=== PATIENT | female | born 1975 | race Caucasian/White ===

== ENCOUNTER → 2017-06-08 | Outpatient (CLI) | payer OTHER ==
[~2017-06-08] MED LIST: BCP PO; CITA20 PO; IBUP600 PO; Keflex500 MG PO; Lithium Carbon150 MG PO; Lotrimin Ultra12 GM EXT; NAPR550 PO; Norco 5-325 Ta1 EACH PO; PRAZ1 PO; TAYTULLA 1 MG-1 EACH PO; Ultram50 MG PO
[2017-06-08 17:00] LABS: Specimen Source CERVIX
[2017-06-09 13:51] LABS: Source Cervix
[2017-06-10 11:22] LABS: HPV Genotype 16 Not Detected (NOTDET); HPV Genotype 18 Not Detected (NOTDET)
[2017-06-15 09:08] LABS: HPV High Risk Other Not Detected (NOTDET)
== END ==
LOC: LAB 15:05
PROVIDERS: Registered Nurse Community Health
DX: Z12.4 Encounter for screening for malignant neoplasm of cervix (principal); Z11.3 Encounter for screening for infections with a predominantly sexual mode of transmission; N89.8 Other specified noninflammatory disorders of vagina
CPT/HCPCS: 87070; 87205; 87491; 87591; 87624; G0123

== ENCOUNTER 2017-11-01 10:17 | Emergency (ER) | payer OTHER ==
[~2017-11-01] VITALS: Ht 167.6 cm; Wt 101.2 kg
[~2017-11-01 10:17] MED LIST changes: -BCP PO; -CITA20 PO; -TAYTULLA 1 MG-1 EACH PO
[2017-11-01] MEDS ORDERED: CITA20 PO (10:46)
[2017-11-01] MEDS ORDERED: BCP PO (10:51)
[2017-11-01 11:16] LABS: BASOPHILS ABSOLUTE AUTO 0.04 K/mm3 (0.00-0.23); BASOPHILS PERCENT AUTO 1 % (0-2); EOSINOPHILS ABSOLUTE AUTO 0.19 K/mm3 (0.00-0.68); EOSINOPHILS PERCENT AUTO 3 % (0-6); Hemoglobin 11.6 g/dL (11.5-16.0); IMMATURE GRAN ABSOLUTE AUTO 0.02 K/mm3 (0.00-0.10); IMMATURE GRAN PERCENT AUTO 0 % (0-1); LYMPHOCYTES ABSOLUTE AUTO 2.65 K/mm3 (0.84-5.20); LYMPHOCYTES PERCENT AUTO 35 % (21-46); MONOCYTES ABSOLUTE AUTO 0.63 K/mm3 (0.16-1.47); MONOCYTES PERCENT AUTO 8 % (4-13); Mean Corpuscular HGB 27.7 pg (26.0-34.0); Mean Corpuscular HGB Conc 32.2 g/dL (31.5-36.5); Mean Corpuscular Volume 86 fL (80-100); Mean Platelet Volume 10.3 fL (9.1-12.4); NEUTROPHILS ABSOLUTE AUTO 4.12 K/mm3 (1.96-9.15); NEUTROPHILS PERCENT AUTO 54 % (41-73); Platelet Count 330 K/mm3 (150-400); RDW Coefficient Variation 14.2 % (11.7-14.2); RDW Standard Deviation 44.5 fL (35.1-46.3); Red Blood Cell Count 4.19 M/mm3 (3.80-5.20); White Blood Cell Count 7.65 K/mm3 (4.00-11.30)
[2017-11-01 11:20] LABS: Source, Urine Clean Catch
[2017-11-01 11:37] LABS: Alanine Aminotransfer (ALT/SGP 29 U/L (12-78); Albumin, Blood 3.5 g/dL (3.4-5.0); Albumin/Globulin Ratio 0.9 (0.8-1.8); Alk Phos 66 U/L (50-136); Anion Gap 8 mmol/L (6-16); Aspartate Aminotrans (AST/SGOT 19 U/L (12-37); Bilirubin, Total 0.3 mg/dL (0.1-1.0); Blood Urea Nitrogen 12 mg/dL (8-24); Bun/Creatinine Ratio 19.9 (12.0-20.0); CO2, Blood 23 mmol/L (21-32); Calcium, Blood 8.9 mg/dL (8.5-10.1); Chloride, Blood 108 mmol/L (98-108); Glomerular Filtration Rate >60 (60-); Glucose, Blood 75 mg/dL (70-99); Sodium, Blood 139 mmol/L (136-145); Total Protein, Blood 7.5 g/dL (6.4-8.2); Troponin I <0.015 ng/mL (0.000-0.040)
[2017-11-01 11:42] LABS: Bilirubin, Urine Neg (Neg); Blood, Urine 4+ (Neg); Glucose Qualitative, Urine Neg (Neg); Ketones, Urine Neg (Neg); Leukocyte Esterase, Urine 1+ (Neg); Nitrite, Urine Neg (Neg); Protein, Urine Neg (Neg); Specific Gravity, Urine 1.015 (1.003-1.022); Urobilinogen, Urine NORM (Normal)
[2017-11-01 12:12] LABS: Appearance, Urine Clear (Clear); Color, Urine Yellow (P-Yellow)
[2017-11-01 12:17] LABS: Bacteria Mod /hpf; Squamous Epithelial Cells Mod /hpf (Few)
== END 2017-11-01 14:47 | disposition home or self-care (01) ==
LOC: ER 10:17
PROVIDERS: Emergency Medicine
DX: R07.9 Chest pain, unspecified (principal); R10.11 Right upper quadrant pain; F17.210 Nicotine dependence, cigarettes, uncomplicated; Z79.899 Other long term (current) drug therapy
CPT/HCPCS: 36415; 71046; 80053; 81001; 81025; 83690; 84484; 85025; 87086; 93005; 93010; 96374; 96375; 99284; J2405; J3010

== ENCOUNTER → 2018-07-20 | Outpatient (CLI) | payer OTHER ==
[~2018-07-20] MED LIST changes: +BCP PO; +CITA20 PO; +TAYTULLA 1 MG-1 EACH PO
== END | disposition home or self-care (01) ==
LOC: LAB EV 12:19 → LAB SHORT 12:19
DX: J02.9 Acute pharyngitis, unspecified (principal)
CPT/HCPCS: 87070

== ENCOUNTER 2018-07-24 18:01 | Emergency (ER) | payer OTHER ==
[~2018-07-24] VITALS: Ht 167.6 cm; Wt 91.2 kg
[2018-07-24 19:47] LABS: Source, Urine Clean Catch
[2018-07-24 19:50] LABS: Bilirubin, Urine Neg (Neg); Blood, Urine 1+ (Neg); Glucose Qualitative, Urine Neg (Neg); Ketones, Urine 1+ (Neg); Leukocyte Esterase, Urine 1+ (Neg); Nitrite, Urine Neg (Neg); Protein, Urine 2+ (Neg); Specific Gravity, Urine 1.025 (1.003-1.022); Urobilinogen, Urine NORM (Normal)
[2018-07-24 19:51] LABS: BASOPHILS ABSOLUTE AUTO 0.06 K/mm3 (0.00-0.23); BASOPHILS PERCENT AUTO 1 % (0-2); EOSINOPHILS ABSOLUTE AUTO 0.15 K/mm3 (0.00-0.68); EOSINOPHILS PERCENT AUTO 1 % (0-6); Hematocrit 39.3 % (33.0-51.0); Hemoglobin 12.5 g/dL (11.5-16.0); IMMATURE GRAN ABSOLUTE AUTO 0.02 K/mm3 (0.00-0.10); IMMATURE GRAN PERCENT AUTO 0 % (0-1); LYMPHOCYTES ABSOLUTE AUTO 3.45 K/mm3 (0.84-5.20); LYMPHOCYTES PERCENT AUTO 33 % (21-46); MONOCYTES ABSOLUTE AUTO 0.75 K/mm3 (0.16-1.47); MONOCYTES PERCENT AUTO 7 % (4-13); Mean Corpuscular HGB 27.7 pg (26.0-34.0); Mean Corpuscular HGB Conc 31.8 g/dL (31.5-36.5); Mean Corpuscular Volume 87 fL (80-100); Mean Platelet Volume 10.2 fL (9.1-12.4); NEUTROPHILS ABSOLUTE AUTO 5.95 K/mm3 (1.96-9.15); NEUTROPHILS PERCENT AUTO 57 % (41-73); Platelet Count 337 K/mm3 (150-400); RDW Standard Deviation 47.8 fL (35.1-46.3); Red Blood Cell Count 4.52 M/mm3 (3.80-5.20); White Blood Cell Count 10.38 K/mm3 (4.00-11.30)
[2018-07-24 19:56] LABS: Appearance, Urine Clear (Clear); Color, Urine Yellow (P-Yellow)
[2018-07-24 19:57] LABS: Bacteria Many /hpf; Mucus Mod (0-Heavy); Red Blood Cells, Urine 0-2 /hpf (0-2); Squamous Epithelial Cells Few /hpf (Few)
[2018-07-24 20:12] LABS: U Amphetamine Screen Not Detected; U Barbituate Screen Not Detected; U Benzodiazapine Screen Not Detected; U Buprenorphine Screen Not Detected; U Cannabinoids Screen DETECTED; U Cocaine Screen Not Detected; U Methadone Screen Not Detected; U Methamphetamine Screen Not Detected; U Opiates Screen Not Detected; U Oxycodone Screen Not Detected; U Phencyclidine Screen Not Detected; U Propoxyphene Screen Not Detected
[2018-07-24 20:27] LABS: Alanine Aminotransfer (ALT/SGP 30 U/L (12-78); Alk Phos 66 U/L (50-136); Anion Gap 8 mmol/L (6-16); Aspartate Aminotrans (AST/SGOT 14 U/L (12-37); Bilirubin, Total 0.3 mg/dL (0.1-1.0); Blood Urea Nitrogen 11 mg/dL (8-24); Bun/Creatinine Ratio 15.6 (12.0-20.0); CO2, Blood 22 mmol/L (21-32); Chloride, Blood 108 mmol/L (98-108); Creatinine, Blood 0.71 mg/dL (0.40-1.00); Glomerular Filtration Rate >60 (60-); Glucose, Blood 104 mg/dL (70-99); Potassium, Blood 3.6 mmol/L (3.5-5.5); Salicylate 2.7 mg/dL (2.8-20.0); Sodium, Blood 138 mmol/L (136-145)
[2018-07-24 20:33] LABS: Acetaminophen, Random <2.0 ug/mL (10.0-30.0); Ethanol (Alcohol), Blood, Med <3 mg/dL
== END 2018-07-24 20:33 | disposition home or self-care (01) ==
LOC: ER 18:01
PROVIDERS: Physician Assistant
DX: F31.9 Bipolar disorder, unspecified (principal); J45.909 Unspecified asthma, uncomplicated; G43.909 Migraine, unspecified, not intractable, without status migrainosus; Z79.899 Other long term (current) drug therapy
CPT/HCPCS: 80053; 81001; 85025; 87086; 96372; 99284-25; G0480; J1200; J1630; Q3014

== ENCOUNTER 2019-01-01 17:13 | Emergency (ER) | payer OTHER ==
[~2019-01-01] VITALS: Ht 167.6 cm; Wt 89.4 kg
[2019-01-01 18:33] LABS: Source, Urine Voided
[2019-01-01 18:36] LABS: Bilirubin, Urine Neg (Neg); Blood, Urine 4+ (Neg); Glucose Qualitative, Urine Neg (Neg); Ketones, Urine Neg (Neg); Leukocyte Esterase, Urine Neg (Neg); Nitrite, Urine Neg (Neg); Protein, Urine 1+ (Neg); Specific Gravity, Urine 1.025 (1.003-1.022); Urobilinogen, Urine NORM (Normal)
[2019-01-01 18:42] LABS: Appearance, Urine Clear (Clear); Color, Urine Yellow (P-Yellow)
[2019-01-01 18:43] LABS: Bacteria Many /hpf; Mucus Mod (0-Heavy); Squamous Epithelial Cells Few /hpf (Few); White Blood Cells, Urine 0-2 /hpf (0-5)
[2019-01-01 18:47] LABS: U Amphetamine Screen Not Detected; U Barbituate Screen Not Detected; U Benzodiazapine Screen Not Detected; U Buprenorphine Screen Not Detected; U Cannabinoids Screen DETECTED; U Cocaine Screen Not Detected; U Methadone Screen Not Detected; U Methamphetamine Screen Not Detected; U Opiates Screen Not Detected; U Oxycodone Screen Not Detected; U Phencyclidine Screen Not Detected; U Propoxyphene Screen Not Detected
[2019-01-01 19:01] LABS: BASOPHILS ABSOLUTE AUTO 0.04 K/mm3 (0.00-0.23); BASOPHILS PERCENT AUTO 1 % (0-2); EOSINOPHILS ABSOLUTE AUTO 0.24 K/mm3 (0.00-0.68); EOSINOPHILS PERCENT AUTO 3 % (0-6); Hematocrit 39.4 % (33.0-51.0); Hemoglobin 12.4 g/dL (11.5-16.0); IMMATURE GRAN ABSOLUTE AUTO 0.03 K/mm3 (0.00-0.10); IMMATURE GRAN PERCENT AUTO 0 % (0-1); LYMPHOCYTES PERCENT AUTO 29 % (21-46); MONOCYTES ABSOLUTE AUTO 0.67 K/mm3 (0.16-1.47); MONOCYTES PERCENT AUTO 8 % (4-13); Mean Corpuscular HGB 28.7 pg (26.0-34.0); Mean Corpuscular HGB Conc 31.5 g/dL (31.5-36.5); Mean Corpuscular Volume 91 fL (80-100); NEUTROPHILS ABSOLUTE AUTO 5.23 K/mm3 (1.96-9.15); NEUTROPHILS PERCENT AUTO 60 % (41-73); Platelet Count 313 K/mm3 (150-400); RDW Coefficient Variation 13.1 % (11.7-14.2); RDW Standard Deviation 43.9 fL (35.1-46.3); Red Blood Cell Count 4.32 M/mm3 (3.80-5.20); White Blood Cell Count 8.71 K/mm3 (4.00-11.30)
[2019-01-01 19:27] LABS: Alanine Aminotransfer (ALT/SGP 15 U/L (12-78); Albumin, Blood 3.7 g/dL (3.4-5.0); Alk Phos 71 U/L (50-136); Anion Gap 5 mmol/L (6-16); Aspartate Aminotrans (AST/SGOT 12 U/L (12-37); Bilirubin, Total 0.2 mg/dL (0.1-1.0); Blood Urea Nitrogen 13 mg/dL (8-24); Bun/Creatinine Ratio 16.5 (12.0-20.0); CO2, Blood 27 mmol/L (21-32); Calcium, Blood 9.1 mg/dL (8.5-10.1); Chloride, Blood 106 mmol/L (98-108); Creatinine, Blood 0.79 mg/dL (0.40-1.00); Ethanol (Alcohol), Blood, Med <3 mg/dL; Globulin, Blood 3.8 g/dL (2.2-4.0); Glomerular Filtration Rate >60 (60-); Glucose, Blood 100 mg/dL (70-99); Potassium, Blood 3.6 mmol/L (3.5-5.5); Salicylate 2.9 mg/dL (2.8-20.0); Sodium, Blood 138 mmol/L (136-145); Total Protein, Blood 7.5 g/dL (6.4-8.2)
[2019-01-01 19:37] LABS: Acetaminophen, Random <2.0 ug/mL (10.0-30.0)
[2019-01-01] MEDS ORDERED: OLAN10 PO (19:54)
[2019-01-22] MEDS ORDERED: IBUP400 PO (10:43)
[2019-01-22] MEDS ORDERED: PROAIR RESPICL90 MCG INH (10:44)
[2019-01-22] MEDS ORDERED: VOLTAREN100 GM TOP (10:44)
[2019-01-22] MEDS ORDERED: Imitrex100 MG PO (10:45)
[2019-01-22] MEDS ORDERED: TOPI50 PO (10:45)
[2019-01-22] MEDS ORDERED: Celexa40 MG PO (10:45)
[2019-01-22] MEDS ORDERED: SUCR1 PO (10:46)
[2019-01-22] MEDS ORDERED: OMEPRAZOLE20 MG PO (10:47)
== END 2019-01-01 20:06 | disposition home or self-care (01) ==
LOC: ER 17:13
PROVIDERS: Emergency Medicine
DX: F20.9 Schizophrenia, unspecified (principal); F32.9 Major depressive disorder, single episode, unspecified; Z79.899 Other long term (current) drug therapy; F17.210 Nicotine dependence, cigarettes, uncomplicated
CPT/HCPCS: 80053; 81001; 81025; 84443; 85025; 87086; 99283; G0480

== ENCOUNTER 2019-01-30 11:00 | Day surgery (SDC) | payer OTHER ==
[~2019-01-30] VITALS: Ht 167.6 cm; Wt 98.3 kg
[~2019-01-30 11:00] MED LIST changes: +Celexa40 MG PO; +IBUP400 PO; +Imitrex100 MG PO; +OLAN10 PO; +OMEPRAZOLE20 MG PO; +PROAIR RESPICL90 MCG INH; +SUCR1 PO; +TOPI50 PO; +VOLTAREN100 GM TOP
--- NOTE | 2019-01-30 12:42 | NUR ---
01/30/19 1242 Emerald Sen FIRST IV ATTEMPT IN RIGHT HAND INFILTRATED. SECOND ATTEMPT IN RIGHT FOREARM WAS SUCCESSFUL AND TOLERATED WELL. BOTH BY [facility].MADYS
--- NOTE | 2019-01-30 14:21 | NUR ---
01/30/19 1420 Viviana Dudley V PT MEDICATED FOR PAIN PER DR. ZAMAN ORDERS.
== END 2019-01-30 14:20 | disposition home or self-care (01) ==
LOC: ORSCSDS 11:00
PROVIDERS: Internal Medicine Gastroenterology
PROC: 0DB58ZX Excision of Esophagus, Via Natural or Artificial Opening Endoscopic, Diagnostic (ICD-10-PCS; principal; 2019-01-30 12:30)
DX: K92.1 Melena (principal); R10.13 Epigastric pain; B96.81 Helicobacter pylori [H. pylori] as the cause of diseases classified elsewhere; K29.70 Gastritis, unspecified, without bleeding; F17.210 Nicotine dependence, cigarettes, uncomplicated; E66.9 Obesity, unspecified; Z68.31 Body mass index [BMI] 31.0-31.9, adult; Z79.899 Other long term (current) drug therapy
CPT/HCPCS: 88305; 88342; J2250; J2405; J2704; J3010; J7120

== ENCOUNTER 2021-01-17 11:14 | Emergency (ER) | payer OTHER ==
[~2021-01-17] VITALS: Ht 167.6 cm; Wt 72.6 kg
[2021-01-17 11:57] LABS: Hematocrit 38.3 % (33.0-51.0); Hemoglobin 12.7 g/dL (11.5-16.0); Mean Corpuscular HGB 31.4 pg (26.0-34.0); Mean Corpuscular HGB Conc 33.2 g/dL (31.5-36.5); Mean Corpuscular Volume 95 fL (80-100); Mean Platelet Volume 10.1 fL (9.1-12.4); Platelet Count 263 K/mm3 (150-400); RDW Coefficient Variation 13.9 % (11.7-14.2); RDW Standard Deviation 48.9 fL (35.1-46.3); Red Blood Cell Count 4.04 M/mm3 (3.80-5.20); White Blood Cell Count 7.03 K/mm3 (4.00-11.30)
[2021-01-17 12:15] LABS: Alanine Aminotransfer (ALT/SGP 15 U/L (12-78); Albumin, Blood 3.5 g/dL (3.4-5.0); Albumin/Globulin Ratio 1.1 (0.8-1.8); Alk Phos 55 U/L (50-136); Anion Gap 5 mmol/L (6-16); Aspartate Aminotrans (AST/SGOT 11 U/L (12-37); Bilirubin, Total 0.3 mg/dL (0.1-1.0); Blood Urea Nitrogen 11 mg/dL (8-24); Bun/Creatinine Ratio 15.1 (12.0-20.0); CO2, Blood 27 mmol/L (21-32); Calcium, Blood 8.8 mg/dL (8.5-10.1); Chloride, Blood 107 mmol/L (98-108); Creatinine, Blood 0.73 mg/dL (0.40-1.00); Globulin, Blood 3.3 g/dL (2.2-4.0); Glomerular Filtration Rate >60 (60-); Glucose, Blood 87 mg/dL (70-99); Sodium, Blood 139 mmol/L (136-145); Total Protein, Blood 6.8 g/dL (6.4-8.2)
[2021-01-17 12:16] LABS: BASOPHILS ABSOLUTE MAN 0.07 K/mm3 (0.00-0.23); BASOPHILS PERCENT MAN 1 % (0-2); EOSINOPHILS ABSOLUTE MAN 0.91 K/mm3 (0.00-0.68); EOSINOPHILS PERCENT MAN 13 % (0-6); LYMPHOCYTES ABSOLUTE MAN 2.46 K/mm3 (0.84-5.20); LYMPHOCYTES PERCENT MAN 35 % (21-46); MONOCYTES ABSOLUTE MAN 0.49 K/mm3 (0.16-1.47); MONOCYTES PERCENT MAN 7 % (4-13); NEUTROPHILS ABSOLUTE MAN 3.09 K/mm3 (1.96-9.15); SEG NEUTROPHILS PERCENT MAN 44 % (41-73); TOTAL CELLS COUNTED 100
== END 2021-01-17 13:34 | disposition home or self-care (01) ==
LOC: ER 11:14
PROVIDERS: Physician Assistant
DX: J06.9 Acute upper respiratory infection, unspecified (principal); F17.210 Nicotine dependence, cigarettes, uncomplicated
CPT/HCPCS: 36415; 71045; 80053; 84484; 85025; 99283-25

== ENCOUNTER 2021-01-20 19:09 | Emergency (ER) | payer OTHER ==
[~2021-01-20] VITALS: Ht 167.6 cm; Wt 72.6 kg
[2021-01-20 20:50] LABS: SARS-Cov-2 (COVID-19) PCR, MMC NEGATIVE (NEGATIVE)
== END 2021-01-20 23:37 | disposition home or self-care (01) ==
LOC: ER 19:09
PROVIDERS: Physician Assistant
DX: J06.9 Acute upper respiratory infection, unspecified (principal); F17.210 Nicotine dependence, cigarettes, uncomplicated; Z20.822 Contact with and (suspected) exposure to COVID-19
CPT/HCPCS: 71046; 93005; 93010; 99285-25; U0004

== ENCOUNTER 2021-12-12 11:59 | Emergency (ER) | payer OTHER ==
[~2021-12-12] VITALS: Ht 167.6 cm; Wt 102.1 kg
[2021-12-12 12:46] LABS: BASOPHILS ABSOLUTE AUTO 0.06 K/mm3 (0.00-0.23); BASOPHILS PERCENT AUTO 1 % (0-2); EOSINOPHILS ABSOLUTE AUTO 0.15 K/mm3 (0.00-0.68); EOSINOPHILS PERCENT AUTO 2 % (0-6); Hematocrit 41.3 % (33.0-51.0); Hemoglobin 13.6 g/dL (11.5-16.0); IMMATURE GRAN ABSOLUTE AUTO 0.02 K/mm3 (0.00-0.10); IMMATURE GRAN PERCENT AUTO 0 % (0-1); LYMPHOCYTES ABSOLUTE AUTO 2.15 K/mm3 (0.84-5.20); LYMPHOCYTES PERCENT AUTO 27 % (21-46); MONOCYTES PERCENT AUTO 8 % (4-13); Mean Corpuscular HGB 28.9 pg (26.0-34.0); Mean Corpuscular HGB Conc 32.9 g/dL (31.5-36.5); Mean Corpuscular Volume 88 fL (80-100); Mean Platelet Volume 9.6 fL (9.1-12.4); NEUTROPHILS ABSOLUTE AUTO 5.05 K/mm3 (1.96-9.15); NEUTROPHILS PERCENT AUTO 63 % (41-73); Platelet Count 328 K/mm3 (150-400); RDW Coefficient Variation 13.7 % (11.7-14.2); RDW Standard Deviation 44.3 fL (35.1-46.3); Red Blood Cell Count 4.71 M/mm3 (3.80-5.20); White Blood Cell Count 8.03 K/mm3 (4.00-11.30)
[2021-12-12 13:06] LABS: Albumin/Globulin Ratio 1.1 (0.8-1.8); Bilirubin, Total 0.7 mg/dL (0.1-1.0); Bun/Creatinine Ratio 18.2 (12.0-20.0); Calcium, Blood 9.6 mg/dL (8.5-10.1); Creatinine, Blood 0.55 mg/dL (0.40-1.00); Globulin, Blood 3.5 g/dL (2.2-4.0); Potassium, Blood 4.2 mmol/L (3.5-5.5); Total Protein, Blood 7.5 g/dL (6.4-8.2)
[2021-12-12] MEDS ORDERED: IBUP600 PO (14:19)
== END 2021-12-12 14:59 | disposition home or self-care (01) ==
LOC: ER 11:59
PROVIDERS: Emergency Medicine
DX: R07.89 Other chest pain (principal); F17.210 Nicotine dependence, cigarettes, uncomplicated; Z79.899 Other long term (current) drug therapy
CPT/HCPCS: 36415; 71045; 80053; 84484; 85025; 93005; 93010; 99284-25; J1885

== ENCOUNTER → 2022-09-01 | Outpatient (CLI) | payer OTHER ==
[2022-09-05 15:08] LABS: HPV 16 Negative (Negative); HPV 18 Negative (Negative); HPV OTHER HR TYPES Negative (Negative)
== END | disposition home or self-care (01) ==
LOC: LAB 16:30 → LAB SHORT 16:30
PROVIDERS: Registered Nurse
DX: Z01.419 Encounter for gynecological examination (general) (routine) without abnormal findings (principal)
CPT/HCPCS: 87624; G0145

== ENCOUNTER → 2022-09-10 | Outpatient (CLI) | payer OTHER ==
[2022-09-14 10:31] LABS: Stool Occult Bld Immuno 1 Negative (NEGATIVE)
== END | disposition home or self-care (01) ==
LOC: LAB SHORT 12:00 → LAB 12:00 → LAB SHORT 09-13 12:00
PROVIDERS: Registered Nurse
DX: Z12.11 Encounter for screening for malignant neoplasm of colon (principal); Z12.12 Encounter for screening for malignant neoplasm of rectum
CPT/HCPCS: G0328

== ENCOUNTER 2024-07-03 14:24 | Emergency (ER) | payer OTHER ==
[~2024-07-03] VITALS: Ht 167.6 cm; Wt 108.0 kg
[~2024-07-03 14:24] MED LIST changes: +LOPE2C PO
[2024-07-03 14:42] VITALS: BP 155/102
[2024-07-03 15:08] LABS: Source, Urine Clean Catch
[2024-07-03 15:12] LABS: Appearance, Urine Clear (Clear); Bilirubin, Urine Neg (Neg); Blood, Urine 1+ (Neg); Color, Urine Yellow (P-Yellow); Glucose Qualitative, Urine Neg (Neg); Ketones, Urine Neg (Neg); Leukocyte Esterase, Urine Neg (Neg); Nitrite, Urine Neg (Neg); Protein, Urine Neg (Neg); Specific Gravity, Urine 1.015 (1.003-1.022); Urobilinogen, Urine NORM (Normal)
[2024-07-03 15:25] LABS: BASOPHILS ABSOLUTE AUTO 0.02 K/mm3 (0.00-0.23); BASOPHILS PERCENT AUTO 0 % (0-2); EOSINOPHILS ABSOLUTE AUTO 0.03 K/mm3 (0.00-0.68); EOSINOPHILS PERCENT AUTO 0 % (0-6); Hematocrit 42.2 % (33.0-51.0); Hemoglobin 14.5 g/dL (11.5-16.0); IMMATURE GRAN ABSOLUTE AUTO 0.01 K/mm3 (0.00-0.10); IMMATURE GRAN PERCENT AUTO 0 % (0-1); LYMPHOCYTES PERCENT AUTO 23 % (21-46); MONOCYTES ABSOLUTE AUTO 0.49 K/mm3 (0.16-1.47); MONOCYTES PERCENT AUTO 6 % (4-13); Mean Corpuscular HGB 30.1 pg (26.0-34.0); Mean Corpuscular HGB Conc 34.4 g/dL (31.5-36.5); Mean Corpuscular Volume 88 fL (80-100); Mean Platelet Volume 9.4 fL (9.1-12.4); NEUTROPHILS ABSOLUTE AUTO 5.49 K/mm3 (1.96-9.15); NEUTROPHILS PERCENT AUTO 70 % (41-73); Platelet Count 321 K/mm3 (150-400); RDW Coefficient Variation 12.2 % (11.7-14.2); RDW Standard Deviation 39.2 fL (35.1-46.3); Red Blood Cell Count 4.81 M/mm3 (3.80-5.20); White Blood Cell Count 7.84 K/mm3 (4.00-11.30)
[2024-07-03 15:35] LABS: U Amphetamine Screen Not Detected; U Barbituate Screen Not Detected; U Benzodiazapine Screen Not Detected; U Buprenorphine Screen Not Detected; U Cannabinoids Screen DETECTED; U Cocaine Screen Not Detected; U Methadone Screen Not Detected; U Methamphetamine Screen Not Detected; U Opiates Screen Not Detected; U Oxycodone Screen Not Detected; U Phencyclidine Screen Not Detected
[2024-07-03 15:45] LABS: White Blood Cells, Urine 0-2 /hpf (0-5)
[2024-07-03] MEDS ORDERED: Diphth,Pertuss(Acell),Tet Vac 0.5 ML VIAL IM ONE (15:45)
[2024-07-03] MEDS ORDERED: Ketorolac Tromethamine 30mg Vial IM ONE (15:45)
[2024-07-03 15:46] LABS: Bacteria Rare /hpf; Red Blood Cells, Urine 0-2 /hpf (0-2); Squamous Epithelial Cells Few /hpf (Few)
[2024-07-03 15:59] LABS: Ethanol (Alcohol), Blood, Med <3 mg/dL; Salicylate <1.7 mg/dL (2.8-20.0)
[2024-07-03 16:27] LABS: Alanine Aminotransfer (ALT/SGP 17 U/L (12-78); Albumin/Globulin Ratio 0.9 (0.8-1.8); Alk Phos 75 U/L (50-136); Anion Gap 13 mmol/L (3-11); Aspartate Aminotrans (AST/SGOT 15 U/L (12-37); Bilirubin, Total 0.3 mg/dL (0.1-1.0); Blood Urea Nitrogen 9 mg/dL (8-24); Bun/Creatinine Ratio 16.6 (12.0-20.0); CO2, Blood 22 mmol/L (21-32); Calcium, Blood 9.8 mg/dL (8.5-10.1); Chloride, Blood 104 mmol/L (98-108); Creatinine, Blood 0.54 mg/dL (0.40-1.00); Globulin, Blood 4.3 g/dL (2.2-4.0); Glomerular Filtration Rate 115 (60-); Glucose, Blood 119 mg/dL (70-99); Potassium, Blood 3.9 mmol/L (3.5-5.5); Sodium, Blood 135 mmol/L (136-145); Total Protein, Blood 8.3 g/dL (6.4-8.2)
[2024-07-03 16:31] LABS: Acetaminophen, Random <2.0 ug/mL (10.0-30.0)
[2024-07-03 16:39] LABS: CORONAVIRUS COVID-19 AG Negative (NEGATIVE); INFLUENZA A AG Negative (NEGATIVE); INFLUENZA B AG Negative (NEGATIVE)
[2024-07-03] MEDS ORDERED: Acetaminophen 500 MG Tab PO ONE (19:55)
[2024-07-04] MEDS ORDERED: REXULTI3 MG PO (11:29)
[2024-07-04] MEDS ORDERED: TRAZ50 PO (11:30)
[2024-07-04] MEDS ORDERED: PRAZ2 PO (11:31)
[2024-07-04] MEDS ORDERED: SPIR50 PO (11:33)
[2024-07-04] MEDS ORDERED: DOCU100 PO (11:34)
[2024-07-04] MEDS ORDERED: MIRALAX11910 PO (11:36)
[2024-07-04] MEDS ORDERED: Flonase 0.05% N16 GM (11:37)
[2024-07-04] MEDS ORDERED: SYMBICORT 80-10.2 GM INH (11:38)
== END 2024-07-03 21:26 | disposition other institution (70) ==
LOC: ER 14:24
PROVIDERS: Student in an Organized Health Care Education/Training Program
DX: S51.812A Laceration without foreign body of left forearm, initial encounter (principal); X78.8XXA Intentional self-harm by other sharp object, initial encounter; F31.9 Bipolar disorder, unspecified; F20.9 Schizophrenia, unspecified; F17.290 Nicotine dependence, other tobacco product, uncomplicated; Z23 Encounter for immunization; Z79.899 Other long term (current) drug therapy
CPT/HCPCS: 80053; 80320; 81001; 81025; 85025; 87428-QW; 90471; 90715; 99285-25; A9270; G0480; J1885

== ENCOUNTER 2024-07-03 15:59 | Inpatient (IN) | payer OTHER ==
[~2024-07-03] VITALS: Ht 167.6 cm; Wt 103.6 kg
[2024-07-03] MEDS ORDERED: Haloperidol Lactate Inj. 5 MG/ML Injection IM PRN (18:45)
[2024-07-03] MEDS ORDERED: DiphenhydrAMINE HCl 50 MG Cap PO PRN (18:45)
[2024-07-03] MEDS ORDERED: DiphenhydrAMINE HCl 50 MG/ML 1ML Vial IV PRN (18:45)
[2024-07-03] MEDS ORDERED: Acetaminophen 325 MG TABLET PO PRN (18:45)
[2024-07-03] MEDS ORDERED: FLU VACC TS2024-25(6MOS UP)/PF 45 MCG/0.5 ML SYRINGE IM SCH (18:45)
[2024-07-03] MEDS ORDERED: Aluminum Hydroxide 320MG/5ML 473 ML PO PRN (18:45)
[2024-07-03] MEDS ORDERED: Calcium Carbonate 500 MG Tab Chew PO PRN (18:45)
[2024-07-03] MEDS ORDERED: Ibuprofen 600 MG Tab PO PRN (18:50)
[2024-07-03] MEDS ORDERED: Haloperidol 5 MG Tab PO PRN (18:50)
[2024-07-03] MEDS ORDERED: Polyethylene Glycol 3350 17 gm PO PRN (18:50)
[2024-07-03] MEDS ORDERED: LORazepam 2 MG/ML 1ML Injection IM PRN (18:50)
[2024-07-03] MEDS ORDERED: HydrOXYzine Pamoate 50 MG Cap PO PRN (18:50)
[2024-07-03] MEDS ORDERED: TraZODone HCl 50 MG Tab PO PRN (18:50)
[2024-07-03] MEDS ORDERED: LORazepam 2 MG Tab PO PRN (18:50)
[2024-07-03] MEDS ORDERED: Ondansetron 4 MG SoluTab MM PRN (18:55)
[2024-07-03] MEDS ORDERED: Melatonin 3 MG Tab PO PRN (18:55)
[2024-07-03] MEDS ORDERED: OLANZapine ODT 10 MG Tab MM PRN (18:55)
[2024-07-03 23:06] VITALS: BP 130/94
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
--- NOTE | 2024-07-04 04:38 | NUR ---
END OF SHIFT UPDATE PT CONTINUED TO DENY ANY SI, HI OR HALLUCINATIONS. SHE RECEIVED PRN HYDROXYZINE FOR MASS SCORE OF 3 AROUND 2300. PT SLEPT A FEW HOURS AND THEN PRESENTED TO NURSES STATION AROUND 0250, DENIED FEELING ANXIOUS BUT REPORTED SHE HAD A "WEIRD" DREAM. SHE RETURNED TO HER ROOM WITH A BOOK AND WENT BACK TO BED. Q15 MINUTE CHECKS TO CONTINUE PER UNIT PROTOCOL.
[2024-07-04 08:09] VITALS: BP 130/82
[2024-07-04] MEDS ORDERED: Nicotine 21 MG PATCH TOP SCH (09:00)
[2024-07-04] MEDS ORDERED: Multivitamins 1 Tab PO SCH (09:00)
[2024-07-04] MEDS ORDERED: SUMAtriptan succinate 50 MG Tab PO PRN (09:20)
[2024-07-04] MEDS ORDERED: Loperamide HCl 2 MG Cap PO PRN (09:20)
[2024-07-04] MEDS ORDERED: Albuterol HFA200 ACT/6.7 GM INH INH PRN (09:30)
[2024-07-04] MEDS ORDERED: REXULTI3 MG PO (11:29)
[2024-07-04] MEDS ORDERED: TRAZ50 PO (11:30)
[2024-07-04] MEDS ORDERED: Sucralfate 1 GM Tab PO SCH (11:30)
[2024-07-04] MEDS ORDERED: PRAZ2 PO (11:31)
[2024-07-04] MEDS ORDERED: SPIR50 PO (11:33)
[2024-07-04] MEDS ORDERED: DOCU100 PO (11:34)
[2024-07-04] MEDS ORDERED: MIRALAX11910 PO (11:36)
[2024-07-04] MEDS ORDERED: Flonase 0.05% N16 GM (11:37)
[2024-07-04] MEDS ORDERED: SYMBICORT 80-10.2 GM INH (11:38)
[2024-07-04] MEDS ORDERED: Docusate Sodium 100 MG Cap PO PRN (11:50)
[2024-07-04] MEDS ORDERED: Mometasone/Formoterol MDI 100/5 mcg 13 GM INH SCH (13:40)
--- NOTE | 2024-07-04 17:01 | NUR ---
SHIFT NOTE: PT A BIT TEARFUL AFTER MORNING MEAL BUT EASILY CALMED WIT DISCUSSION. SHE PARTICIPATED IN ALL MEALS, SNACKS, AND GROUPS. PT DENIES SI/HI AND STATES SHE DOES OCCASIONALLY HEAR A VOICE TALKING TO HER BUT IT IS NOT OF HARMFUL INTENT. PT HAS A BASELINE HX OF HEARING VOICES. SHE SPOKE TO HER TECHNICAL SERVICE ENGINEER, JOSE MIGUEL, FROM [facility], ON THE PHONE. SHE BECAME SLIGHTLY TEARFUL AFTER THE CALL BUT CALMED EASILY. PT WAS IN A HAPPY COMPLIANT MOOD FOR THE REST OF THE SHIFT. SHE WAS COMPLIANT WITH ALL MEDICATIONS THIS SHIFT AND INTERACTED WELL WITH PEERS AND STAFF.
--- NOTE | 2024-07-04 18:17 | NUR ---
Spiritual Care | Pt. Request At the request of the Pt. stephanie billet recorder met her at the [facility] meetign room. Pt. is pleasant and respectful. Pt. verbalized that she was worried that God wouldn't forgive her for hurting herself, and prodeded to show me her cutting scars. Pastoral Care and words of life are shared with the Pt. Pt. was able to verbalize that she was "a child of God." Rapport is established. This billet recorder prayed prayers of confession and forgivenness over the Pt. With arms stretched above her head the Pt. verbalized gratitude for the prayer and the spiritual care visit.
[2024-07-04] MEDS ORDERED: Topiramate 25 MG Tab PO SCH (21:00)
[2024-07-04] MEDS ORDERED: Prazosin HCl 1 MG Cap PO SCH (21:00)
[2024-07-04 22:51] VITALS: BP 135/92
--- NOTE | 2024-07-05 04:07 | NUR ---
SHIFT SUMMARY PT PRESENT IN GROUP ROOM AT START OF SHIFT. INTERACTS WITH STAFF AND PEERS. DENIES ANY SI, HI OR AVH. STATES SHE WANTS TO GO HOME, BUT UNDERSTANDS THAT SHE HAS ONLY BEEN HERE A DAY AND SHOULD STAY LONGER. CUTS TO LEFT ARM APPEAR TO BE HEALING WELL, NO S/S OF INFECTION. REDRESSED ARM PER PT REQUEST. PT HAD EVENING SNACK, WAS COMPLIANT WITH MEDS. REQUESTED AND RECEIVED PRN TRAZODONE AND MELATONIN. PT WENT TO BED AROUND 2100 AND HAS APPEARED TO BE SLEEPING WELL, WITH RESPIRATIONS CONFIRMED. Q15 MINUTE CHECKS TO CONTINUE PER UNIT PROTOCOL.
[2024-07-05 07:38] VITALS: BP 127/87
[2024-07-05] MEDS ORDERED: Fluticasone 0.05% Nasal Spray SCH (09:00)
[2024-07-05] MEDS ORDERED: BREXPIPRAZOLE 3 MG PO SCH (09:00)
[2024-07-05] MEDS ORDERED: Spironolactone 50 MG Tab PO SCH (09:00)
--- NOTE | 2024-07-05 09:49 | NUR ---
HOSPITAL DISCHARGE APPOINTMENT Patient has hospital discharge appointment scheduled with Sunita Rai NP on 07/09/24 at 0845 // [facility] [address] [place] [address] // [phone] GENEVA entered information into patient's discharge packet
--- NOTE | 2024-07-05 16:39 | NUR ---
SHIFT SUMMARY PT HAS BEEN AWAKE ALL DAY AND PARTICIPATING IN ALL [place] ACTIVITIES, ATE ALL MEALS, COOPERATIVE AND RESPECTFUL, SHE DENIES SI/HI THROUGH OUT THE SHIFT. SHE HAD A VISITOR FROM HER PREPLEATER, JOSE MIGUEL THAT WENT WELL. SHE SPOKE WITH A COUPLE OF DIFFERENT FRIENDS ON THE PHONE. POSSIBLE POC FOR DISCHARGE TOMRORROW AND ALREADY HAS PCP APPT SET UP ON MONDAY, CONTINUED Q15 MIN SAFETY CHECKS
[2024-07-05 20:10] VITALS: BP 130/84
--- NOTE | 2024-07-06 03:45 | NUR ---
PATIENT WOKE UP C/O HEADACHE AND BILATERAL HIP PAIN 12/12 . PRN MOTRIN GIVEN. PATIENT WENT BACK TO BED AND IS CURRENTLY SLEEPING.
--- NOTE | 2024-07-06 05:43 | NUR ---
PATIENT CONTINUES TO SLEEP. NO NOTED BEHAVIORS OR ISSUES.
[2024-07-06 08:13] VITALS: BP 124/82
[2024-07-06] MEDS ORDERED: BREXPIPRAZOLE 4 MG PO SCH (09:00)
--- NOTE | 2024-07-06 14:48 | NUR ---
DISCHARGE SUMMARY PT DC HOME WITH A FRIEND, DC COMPLETED BY JESUS HGUGINS FOR THIS RN.
== END 2024-07-06 13:16 | disposition home or self-care (01) | DRG 885 ==
LOC: BHU 15:59
PROVIDERS: ADMIT Psychiatry & Neurology Psychiatry
DX: F20.9 Schizophrenia, unspecified (principal); R45.851 Suicidal ideations; F43.25 Adjustment disorder with mixed disturbance of emotions and conduct; F31.9 Bipolar disorder, unspecified; F17.290 Nicotine dependence, other tobacco product, uncomplicated; S41.112A Laceration without foreign body of left upper arm, initial encounter; S41.111A Laceration without foreign body of right upper arm, initial encounter; F79 Unspecified intellectual disabilities; X78.1XXA Intentional self-harm by knife, initial encounter; Z90.49 Acquired absence of other specified parts of digestive tract; Z90.89 Acquired absence of other organs; Z87.19 Personal history of other diseases of the digestive system; Z91.018 Allergy to other foods; Z79.51 Long term (current) use of inhaled steroids; Z79.891 Long term (current) use of opiate analgesic; Z79.1 Long term (current) use of non-steroidal anti-inflammatories (NSAID); Z79.899 Other long term (current) drug therapy
CPT/HCPCS: 93005; 93010; A9270

== ENCOUNTER 2024-07-29 13:12 | Day surgery (SDC) | payer OTHER ==
[~2024-07-29] VITALS: Ht 167.6 cm; Wt 103.5 kg
[~2024-07-29 13:12] MED LIST changes: +Atropine Sulfate 0.1 MG/ML 10ML SYR ONE; +DOCU100 PO; +Flonase 0.05% N16 GM; +Glycopyrrolate 0.2 MG/ML 1MLVIAL ONE; +Lactated Ringer's 1,000 ML IV ONE; +Lidocaine 2% 5 ML SDV ONE; +Lidocaine HCl/Pf 1% 5 ML VIAL ONE; +MIRALAX11910 PO; +Methylene Blue 1% 100 MG/10 ML VIAL ONE; +Ondansetron HCl 2 MG / ML 2ML Vial ONE; +PRAZ2 PO; +REXULTI3 MG PO; +SPIR50 PO; +SYMBICORT 80-10.2 GM INH; +TRAZ50 PO; +ePHEDrine Sulfate 50 MG/ML 1ML Injection ONE
[2024-07-29] MEDS ORDERED: MOBIC15 MG (13:29)
[2024-07-29] MEDS ORDERED: Lactated Ringer's 1,000 ML IV ONE (13:59)
[2024-07-29] MEDS ORDERED: propofoL 100 ML IV ONE (14:05)
[2024-07-29 15:25] VITALS: BP 109/63
--- NOTE | 2024-07-29 15:28 | NUR ---
07/29/24 1528 MAZIN CHOI RECEIVED REPORT INTRA-OP FROM JOSELUIS YUEN REGARDING PATIENT HX AND DEMOGRAPHICS. ALONA DOVE CRNA IS IN THE ROOM FOR ANESTHESIA. THIS RN TAKING OVER CIRCULATING FOR JOSELUIS YUEN. PT STABLE ON MONITORS. BEGINNING BED TURN FOR LOWER AFTER COMPLETING UPPER.
== END 2024-07-29 15:24 | disposition home or self-care (01) ==
LOC: ORSCSDS 13:12
PROVIDERS: Internal Medicine Gastroenterology
PROC: 0DJD8ZZ Inspection of Lower Intestinal Tract, Via Natural or Artificial Opening Endoscopic (ICD-10-PCS; principal; 2024-07-29 15:00)
PROC: 0DB58ZX Excision of Esophagus, Via Natural or Artificial Opening Endoscopic, Diagnostic (ICD-10-PCS; principal; 2024-07-29 15:00)
PROC: 0DB68ZX Excision of Stomach, Via Natural or Artificial Opening Endoscopic, Diagnostic (ICD-10-PCS; principal; 2024-07-29 15:00)
DX: R13.10 Dysphagia, unspecified (principal); K21.9 Gastro-esophageal reflux disease without esophagitis; K29.70 Gastritis, unspecified, without bleeding; Z12.11 Encounter for screening for malignant neoplasm of colon; I10 Essential (primary) hypertension; F41.9 Anxiety disorder, unspecified; E66.9 Obesity, unspecified; Z68.36 Body mass index [BMI] 36.0-36.9, adult; Z79.899 Other long term (current) drug therapy; F17.290 Nicotine dependence, other tobacco product, uncomplicated
CPT/HCPCS: 88305; 88342; J0461; J2003; J2405; J2704; J7120; Q9968